=== PATIENT | female | born 1970 | race Hispanic/Latino ===

== ENCOUNTER 2018-03-14 15:10 | Outpatient (CLI) | payer OTHER | END 2018-03-14 15:11 | disposition home or self-care (01) | LOC: BICMAMMO 15:10 | PROVIDERS: ATTEND Family Medicine | DX: Z12.31 Encounter for screening mammogram for malignant neoplasm of breast (principal) | CPT/HCPCS: 77067 ==

== ENCOUNTER 2018-12-06 11:45 | Day surgery (SDC) | payer OTHER ==
--- NOTE | 2018-12-05 13:04 | HP ---
HISTORY OF PRESENT ILLNESS: This is a 48-year-old Latin-[place] female comes for a colonoscopy for colon cancer screening. The patient has no specific GI symptoms. There is no family history of colon cancer. ALLERGIES: NONE. SOCIAL HISTORY: The patient does not smoke or drink alcohol. MEDICAL ILLNESSES: 1. Diabetes. 2. Obesity. 3. Status post in the past. PHYSICAL EXAMINATION: GENERAL: She is obese, appears comfortable. VITAL SIGNS: Pulse is 73, blood pressure 130/84. Weight is 233 pounds. NECK: Supple. CARDIOVASCULAR SYSTEM: First and second heart sounds heard. LUNGS: Clear to auscultation. ABDOMEN: Soft. No organomegaly. No tenderness. No masses. EXTREMITIES: Reveal no edema. ADMITTING DIAGNOSIS: A 48-year-old female, undergoing colonoscopy for colon cancer screening. Job ID: [id number]
[2018-12-06 12:59] LABS: BHCG - Serum Negative (NEGATIVE); Pregs Control Background? CLEAR/WHITE (CLR/WHITE); Pregs Control Bar Appear? YES (CONTROL BAR)
--- NOTE | 2018-12-06 18:17 | OP ---
DATE OF PROCEDURE: 12/06/2018 PROCEDURE PERFORMED: Colonoscopy. PREOPERATIVE DIAGNOSIS: A 48-year-old female, undergoing colonoscopy for colon cancer screening. POSTOPERATIVE DIAGNOSIS: Normal colonoscopy except for internal hemorrhoids. DESCRIPTION OF PROCEDURE: The patient was placed on her left lateral position and was given sedation by Anesthesia Department. A rectal exam was done before the scope was advanced into the rectum. No lesions felt on rectal exam. A Pentax videocolonoscope was introduced into the rectum and advanced all the way into the cecum. The patient had a small amount of fecal residue . The mucosa appears normal throughout the colon with normal vascular pattern. Withdrawal of scope in the cecum, ascending colon, hepatic flexure, no pathology seen. The transverse colon, splenic flexure, descending colon, sigmoid colon, no pathology seen. Retroflexion of the scope in the rectum showed hemorrhoids. DISCHARGE PLAN: This is a 48-year-old female, who came for a colonoscopy for colon cancer screening. She underwent colonoscopy. No pathology seen. DISCHARGE RECOMMENDATION: 1. The patient advised to call me if she develops abdominal pain, hematochezia. 2. Repeat colonoscopy in 10 years. Job ID: [id number]
== END 2018-12-06 15:30 | disposition home or self-care (01) ==
LOC: SDC 11:45
PROVIDERS: ATTEND Internal Medicine Gastroenterology
PROC: 0DJD8ZZ Inspection of Lower Intestinal Tract, Via Natural or Artificial Opening Endoscopic (ICD-10-PCS; principal; 2018-12-06)
DX: Z12.11 Encounter for screening for malignant neoplasm of colon (principal); K64.8 Other hemorrhoids; E11.9 Type 2 diabetes mellitus without complications; E66.9 Obesity, unspecified; Z68.41 Body mass index [BMI] 40.0-44.9, adult
CPT/HCPCS: 36415; 84703

== ENCOUNTER 2019-03-23 09:39 | Outpatient (CLI) | payer OTHER ==
--- NOTE | 2019-03-23 10:17 | MMO ---
Bilateral MAMMO Bilat Screen [facility]. CLINICAL HISTORY: Patient is 48 years old and is seen for screening. The patient has no family history of breast cancer. The patient has no personal history of cancer. VIEWS: The views performed were: bilateral craniocaudal with tomosynthesis and bilateral mediolateral oblique with tomosynthesis. MAMMOGRAM FINDINGS: There are scattered fibroglandular densities. There are no suspicious masses, calcifications or areas of architectural distortion. There are benign appearing calcifications in both breasts. There are no suspicious masses, suspicious calcifications, or new areas of architectural distortion. IMPRESSION: THERE IS NO MAMMOGRAPHIC EVIDENCE OF MALIGNANCY. A ROUTINE FOLLOW-UP MAMMOGRAM IN 1 YEAR IS RECOMMENDED. THE RESULTS OF THIS EXAM WERE SENT TO THE PATIENT. ACR BI-RADS Category 2 - Benign finding MAMMOGRAPHY NOTE: 1. A negative mammogram report should not delay a biopsy if a dominant of clinically suspicious mass is present. 2. Approximately 10% to 15% of breast cancers are not detected by mammography. 3. Adenosis and dense breasts may obscure an underlying neoplasm. Reported by: INDRA CLARKE MD Electonically Signed: [id number]
== END 2019-03-23 09:40 | disposition home or self-care (01) ==
LOC: BICMAMMO 09:39
PROVIDERS: ATTEND Family Medicine
DX: Z12.31 Encounter for screening mammogram for malignant neoplasm of breast (principal)
CPT/HCPCS: 77063; 77067